=== PATIENT | female | born 1945 | race Asian ===

== ENCOUNTER 2022-04-28 11:35 | Emergency (ER) | payer OTHER ==
[2022-04-28 11:50] VITALS: BP 178/83; PULSE 84; RESP 19; BMI 31.4
[2022-04-28 12:20] VITALS: TEMP 98.3
[2022-04-28] MEDS ORDERED: ACETAMINOPHEN 500 MG TABLET (FP) PO ONE (12:35)
[2022-04-28] MEDS ORDERED: ACETAMINOPHEN 500 MG TABLET (FP) ONE (12:40)
== END 2022-04-28 13:03 | disposition home or self-care (01) ==
LOC: JERFT 11:35
DX: S93.601A Unspecified sprain of right foot, initial encounter (principal)
CPT/HCPCS: 73630-TC-RT-FY; 99284-25

== ENCOUNTER 2023-08-11 10:43 | Emergency (ER) | payer OTHER ==
[2023-08-11 10:49] VITALS: RESP 18; TEMP 97.8; BMI 38.7
[2023-08-11] MEDS ORDERED: LIDOCAINE 4% PATCH TP ONE ×2 (13:06→13:11)
[2023-08-11] MEDS ORDERED: ACETAMINOPHEN 500 MG TABLET (FP) PO ONE (13:06)
[2023-08-11 14:30] VITALS: BP 144/86; PULSE 79
[2023-08-11] MEDS ORDERED: LIDOCAINE PATCH REMOVAL MC SCH (22:00)
== END 2023-08-11 14:33 | disposition home or self-care (01) ==
LOC: JER 10:43
DX: M25.561 Pain in right knee (principal); M25.562 Pain in left knee; M25.512 Pain in left shoulder; V49.50XA Passenger injured in collision with unspecified motor vehicles in traffic accident, initial encounter
CPT/HCPCS: 73030-TC-LT-FY; 73564-TC-LT-FY; 73564-TC-RT-FY; 99284-25